=== PATIENT | female | born 1980 | race Caucasian/White ===

== ENCOUNTER → 2016-12-28 | Outpatient (REF) | payer BC ==
[~2016-12-28] MED LIST: ACET50TA OR; ANUS2.5C2 TOP; DOCU10ELUD OR; FISHOIL XX; IBUP80TA OR; MOM30SS OR; PRENTAB45 PO
== END ==
LOC: M SFHCCAPE 11:18
PROVIDERS: ATTEND Physician Assistant
DX: N39.0 Urinary tract infection, site not specified (principal)

== ENCOUNTER → 2018-03-07 | Outpatient (REF) | payer BC ==
[2018-03-07 18:18] LABS: APPEARANCE, URINE MANUAL CLOUDY (CLEAR); COLOR, URINE MANUAL ORANGE (YELLOW)
[2018-03-07 18:19] LABS: BILIRUBIN, URINE MANUAL OBSCURED (NEGATIVE); BLOOD URINE MANUAL POSITIVE (NEGATIVE); GLUCOSE, URINE (UA) MANUAL NEGATIVE (NEGATIVE); KETONE, URINE MANUAL OBSCURED mg/dL (NEGATIVE); LEUKOCYTE ESTERASE, URINE MAN OBSCURED (NEGATIVE); NITRITE, URINE MANUAL OBSCURED (NEGATIVE); PROTEIN, URINE MANUAL OBSCURED mg/dL (NEGATIVE); UROBILINOGEN, URINE MANUAL OBSCURED mg/dl (NORMAL)
[2018-03-07 18:20] LABS: MICROSCOPIC INDICATED? MAN YES (NO)
[2018-03-07 19:20] LABS: BACTERIA, URINE LARGE AMOUNT; HYALINE CAST, URINE NONE SEEN /lpf (0-1); MICROSCOPIC EXAM PERFORMED; MUCUS, URINE MOD AMOUNT (NEGATIVE); RBC, URINE 30-40 /hpf (0-3); SQUAMOUS EPITHELIAL CELL URINE MOD AMOUNT /hpf (SMALL AMT); WBC, URINE 30-40 /hpf (0-3)
== END ==
LOC: M SFHCCAPE 10:47
DX: R30.0 Dysuria (principal)
CPT/HCPCS: 81015

== ENCOUNTER 2019-03-21 09:35 | Inpatient (IN) | payer BC ==
[~2019-03-21] VITALS: Ht 162.6 cm; Wt 57.5 kg
[2019-03-21] MEDS: THIAMINE 100 MG TAB PO SCH ×2 (09:00→22:09)
[~2019-03-21 09:35] MED LIST changes: -ACET50TA OR; -DOCU10ELUD OR; +DOCU5LIQ OR; +MAPA500T17 OR
[2019-03-21] MEDS ORDERED: NITR100C2 (09:47)
[2019-03-21] MEDS ORDERED: MORPHINE 4 MG/ML 1ML VIAL/SYRINGE (J2270) IV ONE ×2 (10:45→12:15)
[2019-03-21] MEDS ORDERED: ONDANSETRON 4MG/2ML VIAL (J2405) IV ONE (10:45)
[2019-03-21 10:55] LABS: INR 1.02; PROTHROMBIN TIME 13.1 SECONDS (11.8-14.0)
[2019-03-21 10:56] LABS: PARTIAL THROMBOPLASTIN TIME 32.3 SECONDS (25.0-38.4)
[2019-03-21 11:04] LABS: BASO # 0.1 10^3/uL (0.0-0.2); BASO % 1.2 % (0.0-1.0); EOS % 0.2 % (0.0-3.0); HEMATOCRIT 44.8 % (36.0-47.0); HEMOGLOBIN 15.7 g/dl (12.0-15.5); LYMPH # 0.9 10^3/uL (1.5-4.5); LYMPH % 14.3 % (24.0-44.0); MEAN CORPUSCULAR HEMOGLOBIN 35.5 pg (27.0-33.0); MEAN CORPUSCULAR VOLUME 101.4 fl (80.0-96.0); MONO # 0.7 10^3/uL (0.0-0.8); MONO % 10.4 % (0.0-5.0); NEUTROPHILS # 4.8 10^3/uL (1.8-7.7); NEUTROPHILS % 73.4 % (36.0-66.0); PLATELET COUNT, AUTOMATED 115 10^3/uL (150-450); RED BLOOD COUNT 4.42 10^6/uL (4.00-5.40); WHITE BLOOD COUNT 6.5 10^3/uL (4.0-10.0)
--- NOTE | 2019-03-21 11:28 | REP ---
Clinical: Abdominal pain with history of pancreatitis. Technique: Real time ford scale ultrasound examination using curved array transducer. Findings: Liver is increased echogenicity with poor through transmission suggesting fatty infiltration. No focal hepatic lesion identified. Visualized portions of the pancreas are unremarkable but limited due to interposed bowel gas. The gallbladder is normal and without gallstones, wall thickening, or pericholecystic fluid. No biliary ductal dilatation is appreciated and the common bile duct measures 5.3 mm diameter. The right kidney is normal in reniform shape without hydronephrosis and measures 10.0 x 4.4 x 4.5 cm. No ascites in the visualized right upper quadrant. Impression: Hepatic steatosis. Electronically Signed by Josh Neff MD 03/21/2019 11:20 A
[2019-03-21 11:34] LABS: ALBUMIN 3.7 GM/DL (3.2-5.2); ALT/SGPT 120 U/L (12-78); AMYLASE 459 U/L (25-115); BILIRUBIN,DIRECT 0.8 MG/DL (0.0-0.2); BILIRUBIN,TOTAL 1.6 MG/DL (0.2-1.0); BLOOD UREA NITROGEN 5 MG/DL (7-18); CALCIUM LEVEL 8.1 MG/DL (8.5-10.1); CARBON DIOXIDE LEVEL 21 MEQ/L (21-32); CHLORIDE LEVEL 99 MEQ/L (98-107); ETHYL ALCOHOL (ETHANOL) 0.207 % (0.000-0.010); GLOMERULAR FILTRATION RATE > 60.0 (>58); GLUCOSE, FASTING 67 MG/DL (70-100); LIPASE 12146 U/L (73-393); POTASSIUM SERUM 3.3 MEQ/L (3.5-5.1); SODIUM LEVEL 137 MEQ/L (136-145); TOTAL PROTEIN 7.3 GM/DL (6.4-8.2)
[2019-03-21] MEDS ORDERED: NS 1,910 ML in APPROPRIATE DILUENT 1 EA IV ONE (12:00)
[2019-03-21] MEDS ORDERED: ACETAMINOPHEN TAB 650MG DOSE (2X325MG) PO PRN (12:45)
[2019-03-21] MEDS ORDERED: MAALOX 30 ML SUSP *UDC PO PRN (12:45)
[2019-03-21] MEDS ORDERED: MOM 30ML SUSPENSION UDC PO PRN (12:45)
[2019-03-21] MEDS ORDERED: ONDANSETRON 4MG/2ML VIAL (J2405) IV PRN (12:45)
[2019-03-21] MEDS ORDERED: ISOVUE-370 76% 100ML VIAL (Q9967) As Ordered ONE (13:16)
--- NOTE | 2019-03-21 13:18 | HPEPDOC ---
General Date of Admission Mar 21, 2019 at 12:35 Date of Service: Mar 21, 2019 Primary Care Physician: EDILMA DIAL PA-C Attending Physician: SIVAKUMAR ZIMMERMAN MD Chief Complaint The patient is a 39-year-old female admitted with a reason for visit of Pancreatitis,Alcoholic,Acute. Source: Patient, Family Exam Limitations: No limitations Timing/Duration: Day(s) Severity: Severe Associated Symptoms: Nausea, Other History of Present Illness 39 years old white female with past medical history of no significant disease except alcohol abuse was seen at [facility] last night with abdominal pain and was discharged home after treatment, came back again with complaining of increasing abdominal pain with nausea. Patient was found to have very high lipase level and being admitted with the diagnoses of alcohol-induced acute pancreatitis. Note, patient had a history of seizures after abruptly stopping her alcohol in the past Home Medications No Active Prescriptions or Reported Meds Allergies Coded Allergies: Sulfa (Sulfonamide Antibiotics) (Verified Allergy, Intermediate, cant remember, 03/21/19) Past Medical History Medical History None Surgical History None Family History Significant Family History: No pertinent family hx Social History * Smoker: Denies Alcohol: heavy Drugs: denies A-FIB/CHADSVASC A-FIB History Current/History of A-Fib/PAF?: No Review of Systems Constitutional: Denies: Chills, Fever, Malaise, Night Sweats, Weakness, Fatigue, Weight Loss, Lethargy, Other Eyes: Denies: Pain, Vision change, Conjunctivae inflammation, Eyelid inflammation, Redness, Other ENT: Denies: Head Aches, Ear Pain, Dysphagia, Sinus Congestion, Post Nasal Drip, Sore Throat, Epistaxis, Other Symptoms Skin: Denies: Rash, Lesions, Jaundice, Bruising, Itching, Dry, Breakdown, Nail Changes, Other Gastrointestinal: Reports: Nausea, Abdominal Pain Genitourinary: Denies: Dysuria, Frequency, Incontinence, Hematuria, Retention, Other Symptoms Hematologic: Denies: Bruising, Bleeding Excessively, Petecchia, Purpura, Enlarged Lymph Nodes, Other Hematologic Endocrine: Denies: Polydipsia, Polyphagia, Polyuria, Heat Intolerance, Cold Intolerance, Other Endocrine Sx Musculoskeletal: Denies: Neck Pain, Back Pain, Shoulder Pain, Arm Pain, Hand Pain, Leg Pain, Foot Pain, Joint Pain, Muscle Pain, Spasms, Other Symptoms Neurological: Denies: Weakness, Numbness, Incoordination, Change in speech, Confusion, Seizures, Other Symptoms Psych: Denies: Mood Normal, Anxiety, Depression, Memory Issues, Thoughts of S elf Harm, Anger, Thoughts of Harming Other, Other Psych Physical Examination General Exam: Positive: Alert, Cooperative Eye Exam: Positive: PERRLA ENT Exam: Positive: Atraumatic Neck Exam: Positive: Supple Chest Exam: Positive: Clear to auscultation Heart Exam: Positive: Rate Normal, Normal S1, Normal S2 Abdomen Exam: Positive: Normal bowel sounds, Soft, Tenderness (at the epigastric area) Extremity Exam: Positive: Normal pulses Skin Exam: Positive: Nl turgor and temperature Neuro Exam: Positive: Normal Gait, Normal Speech, Cranial Nerves 3-12 NL Psych Exam: Positive: Mental status NL Vital Signs Vital Signs Date Time Temp Pulse Resp B/P (MAP) Pulse Ox O2 Delivery O2 Flow Rate FiO2 03/21/19 12:18 18 03/21/19 10:15 03/21/19 09:35 97.7 68 100 Room Air Laboratory Data Labs 24H Laboratory Tests 2 03/21/19 10:07: Prothrombin Time 13.1, Prothromb Time International Ratio 1.02, Activated Partial Thromboplast Time 32.3 03/21/19 10:45: Immature Granulocyte % (Auto) 0.5, White Blood Count 6.5, Red Blood Count 4.42, Hemoglobin 15.7H, Hematocrit 44.8, Mean Corpuscular Volume 101.4H, Mean Corpu scular Hemoglobin 35.5H, Mean Corpuscular Hemoglobin Concent 35.0, Red Cell Distribution Width 12.8, Platelet Count 115L, Neutrophils (%) (Auto) 73.4H, Lymphocytes (%) (Auto) 14.3L, Monocytes (%) (Auto) 10.4H, Eosinophils (%) (Auto) 0.2, Basophils (%) (Auto) 1.2H, Neutrophils # (Auto) 4.8, Lymphocytes # (Auto) 0.9L, Monocytes # (Auto) 0.7, Eosinophils # (Auto) 0.0, Basophils # (Auto) 0.1, Nucleated Red Blood Cells % (auto) 0.0, Anion Gap 17H, Glomerular Filtration Rate > 60.0, Calcium Level 8.1L, Aspartate Amino Transf (AST/SGOT) 329H, Alanine Aminotransferase (ALT/SGPT) 120H, Alkaline Phosphatase 95, Total Bilirubin 1.6H, Direct Bilirubin 0.8H, Total Protein 7.3, Albumin 3.7, Albumin/Globulin Ratio 1.03, Amylase Level 459H, Lipase 05177I, Ethyl Alcohol Level 0.207H 03/21/19 10:46: Lactic Acid Level 3.2*H CBC/BMP Laboratory Tests 03/21/19 10:45 Red Blood Count 4.42, Mean Corpuscular Volume 101.4 H, Mean Corpuscular Hemoglobin 35.5 H, Mean Corpuscular Hemoglobin Concent 35.0, Red Cell Distribution Width 12.8, Neutrophils (%) (Auto) 73.4 H, Lymphocytes (%) (Auto) 14.3 L, Monocytes (%) (Auto) 10.4 H, Eosinophils (%) (Auto) 0.2, Basophils (%) ( Auto) 1.2 H, Neutrophils # (Auto) 4.8, Lymphocytes # (Auto) 0.9 L, Monocytes # (Auto) 0.7, Eosinophils # (Auto) 0.0, Basophils # (Auto) 0.1 Problems (1) Pancreatitis, alcoholic, acute Status: Acute Problem Text: Admit to medical floor with telemetry IV fluids normal saline with KCl 40 mEq 800 mL per hour Protonix 40 mg IV every 12 hours CIWA protocol with benzodiazepines Seizure precautions CT of the abdomen and pelvis Zofran when necessary for nausea, vomiting Morphine sulfate when necessary for pain 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
--- NOTE | 2019-03-21 13:45 | REP ---
Clinical: Acute pancreatitis Technique: Axial contrast enhanced images from the lung bases to the pubic symphysis with coronal and sagittal re-formations using 100 ml Isovue 370 intravenous contrast material. Delayed images of the abdomen obtained. Comparison: None. Findings: Moderate amount of stranding and free fluid is appreciated adjacent to the head of the pancreas as well as the retroperitoneal space, mesentery and extending along the right paracolic gutter into the pelvis. Findings are consistent with the given history of acute pancreatitis. The pancreas itself demonstrates homogeneous parenchymal enhancement without evidence for necrosis or ischemia. Pancreatic duct appears relatively normal. No obvious discrete drainable abscess or pseudocyst. Liver demonstrates diffuse fatty infiltration with 2.5 cm area of enhancement along the posterior segment right lobe which may reflect normal parenchyma or hemangioma. Gallbladder is mildly distended. Spleen, bilateral adrenal glands and kidneys are normal. Enteric system is without obstruction or acute inflammatory process. Colonic and sigmoid diverticulosis noted without acute diverticulitis. Normal terminal ileum and appendix are identified in the right lower quadrant. Pelvis demonstrates normal bladder with small amount of air in the nondependent portion possibly related to prior Funes catheterization. Normal appearance to the uterus/adnexa. No significant adenopathy. Abdominal aorta and vasculature normal. Surrounding musculoskeletal structures are intact. Lung bases are clear. Impression: 1. Findings as described above consistent with the given history of acute pancreatitis. No drainable collection/abscess or pseudocyst identified. 2. Diffuse fatty infiltration to the liver with possible focal fatty sparing or hemangioma in the posterior segment right lobe. 3. Colonic diverticulosis without acute diverticulitis. Electronically Signed by Josh Neff MD 03/21/2019 01:37 P
[2019-03-21 14:31] LABS: MAGNESIUM LEVEL 1.7 MG/DL (1.8-2.4)
[2019-03-21 14:32] VITALS: BP 129/67
[2019-03-21 14:57] VITALS: BP 129/67
[2019-03-21] MEDS: KCL 40MEQ in NS 1000ML 1,000 ML IV SCH (15:19)
[2019-03-21] MEDS: PANTOPRAZOLE 40MG INJ (PROTONIX) (C9113) IV SCH (15:19)
[2019-03-21] MEDS: LORazepam 2 MG TAB PO PRN ×2 (15:19→19:58)
[2019-03-21] MEDS: MULTIVITAMINS/MINERALS THERAP 1 TAB PO SCH (15:19)
[2019-03-21] MEDS: FOLIC ACID 1 MG TAB PO SCH (15:19)
[2019-03-21] MEDS ORDERED: NS 1,000 ML IV ONE (15:45)
[2019-03-21] MEDS: MORPHINE 4 MG/ML 1ML VIAL/SYRINGE (J2270) IV PRN (16:28)
[2019-03-21 19:00] VITALS: BP 135/68
[2019-03-21 19:58] VITALS: BP 124/72
[2019-03-21 22:00] VITALS: BP 124/72
[2019-03-21] MEDS: DOCUSATE SODIUM 100 MG CAP PO SCH (22:10)
[2019-03-22] VITALS (7 sets, daily range): BP systolic 124–139; BP diastolic 60–78
[2019-03-22] MEDS: PANTOPRAZOLE 40MG INJ (PROTONIX) (C9113) IV SCH ×2 (02:20→12:24)
[2019-03-22] MEDS: KCL 40MEQ in NS 1000ML 1,000 ML IV SCH ×3 (02:20→13:22)
[2019-03-22] MEDS: MORPHINE 4 MG/ML 1ML VIAL/SYRINGE (J2270) IV PRN ×2 (06:28→13:35)
[2019-03-22 06:38] LABS: MEAN CORPUSCULAR HEMOGLOBIN 35.2 pg (27.0-33.0); MEAN CORPUSCULAR HGB CONC 33.8 g/dl (32.0-36.5); MEAN CORPUSCULAR VOLUME 104.4 fl (80.0-96.0); RED BLOOD COUNT 3.83 10^6/uL (4.00-5.40); WHITE BLOOD COUNT 5.4 10^3/uL (4.0-10.0)
[2019-03-22 06:50] LABS: PLATELET COUNT, AUTOMATED 85 10^3/uL (150-450)
[2019-03-22 06:51] LABS: HEMOGLOBIN 13.5 g/dl (12.0-15.5)
[2019-03-22 07:01] LABS: ALBUMIN 3.1 GM/DL (3.2-5.2); ALT/SGPT 83 U/L (12-78); BLOOD UREA NITROGEN 3 MG/DL (7-18); CALCIUM LEVEL 6.9 MG/DL (8.5-10.1); CARBON DIOXIDE LEVEL 18 MEQ/L (21-32); CHLORIDE LEVEL 102 MEQ/L (98-107); CREATININE FOR GFR 0.53 MG/DL (0.55-1.30); GLOMERULAR FILTRATION RATE > 60.0 (>58); GLUCOSE, FASTING 65 MG/DL (70-100); MAGNESIUM LEVEL 1.6 MG/DL (1.8-2.4); POTASSIUM SERUM 4.4 MEQ/L (3.5-5.1); SODIUM LEVEL 134 MEQ/L (136-145); TOTAL PROTEIN 6.4 GM/DL (6.4-8.2)
[2019-03-22 08:24] LABS: LIPASE 12143 U/L (73-393)
[2019-03-22] MEDS: THIAMINE 100 MG TAB PO SCH ×2 (09:34→20:53)
[2019-03-22] MEDS: FOLIC ACID 1 MG TAB PO SCH (09:34)
[2019-03-22] MEDS: DOCUSATE SODIUM 100 MG CAP PO SCH ×2 (09:34→20:53)
[2019-03-22] MEDS: MULTIVITAMINS/MINERALS THERAP 1 TAB PO SCH (09:34)
--- NOTE | 2019-03-22 11:08 | IPNPDOC ---
Subjective Date Seen The patient was seen on 03/22/19. Subjective Chief Complaint/HPI Patient offers no new complaints. Still feeling swollen Overall but no chest pain, no nausea, vomiting, no diarrhea General: Denies: ROS Unobtainable, Chills, Night Sweats, Fatigue, Malaise, Normal Appetite, Other Symptoms Constitutional: Denies: Chills, Fever, Night Sweats Eyes: Denies: Pain, Vision change, Conjunctivae inflammation, Eyelid inflammation, Redness, Other ENT: Denies: Head Aches, Ear Pain, Dysphagia, Sinus Congestion, Post Nasal Drip, Sore Throat, Epistaxis, Other Symptoms Skin: Denies: Rash, Lesions, Jaundice, Bruising, Itching, Dry, Breakdown, Nail Changes, Other Pulmonary: Denies: Dyspnea, Cough, Pleuritic Chest Pain, Other Symptoms Cardiovascular: Denies: Chest Pain, Palpitations, Orthopnea, Paroxysmal Noc. Dyspnea, Edema, Lt Headedness, Other Symptoms Gastrointestinal: Denies: Nausea, Vomiting, Abdominal Pain, Diarrhea, Constipation, Melena, Hematochezia, Other Symptoms Musculoskeletal: Denies: Neck Pain, Back Pain, Shoulder Pain, Arm Pain, Hand Pain, Leg Pain, Foot Pain, Joint Pain, Muscle Pain, Spasms, Other Symptoms Neurological: Denies: Weakness, Numbness, Incoordination, Change in speech, Confusion, Seizures, Other Symptoms Psych: Denies: Mood Normal, Anxiety, Depression, Memory Issues, Thoughts of Self Harm, Anger, Thoughts of Harming Other, Other Psych Objective Physical Examination General Exam: Positive: Alert, Cooperative Eye Exam: Positive: PERRLA ENT Exam: Positive: Atraumatic Neck Exam: Positive: Supple Chest Exam: Positive: Clear to auscultation Heart Exam: Positive: Rate Normal, Normal S1, Normal S2 Abdomen Exam: Positive: Normal bowel sounds, Soft, Tenderness (at the epigastric area) Extremity Exam: Positive: Normal pulses Skin Exam: Positive: Nl turgor and temperature Neuro Exam: Positive: Normal Gait, Normal Speech, Cranial Nerves 3-12 NL Psych Exam: Positive: Mental status NL Assessment /Plan Problems (1) Pancreatitis, alcoholic, acute Status: Acute Problem Text: IV fluids normal saline with KCl 40 mEq 800 mL per hour Protonix 40 mg IV every 12 hours CIWA protocol with benzodiazepines Seizure precautions CT of the abdomen and pelvis consistent with acute pancreatitis Zofran when necessary for nausea, vomiting Morphine sulfate when necessary for pain Folic acid and thiamine supplementations Repeat labs in a.m. Alcohol abstinence counseling was done in detail Plan/VTE VTE Prophylaxis Ordered?: Yes VS, I&O, 24H, Gopi Vital Signs/I&O Vital Signs Date Time Temp Pulse Resp B/P (MAP) Pulse Ox O2 Delivery O2 Flow Rate FiO2 03/22/19 08:00 72 128/63 03/22/19 06:38 20 03/22/19 06:00 98.4 100 03/21/19 14:26 Room Air I&O- Last 24 Hours up to 6 AM 03/22/19 06:00 Intake Total 3530 ml Output Total 0 ml Balance 3530 ml Laboratory Data 24H LABS Laboratory Tests 2 03/21/19 14:30: Urine Color KAELA, Urine Appearance HAZY, Urine pH 6.0, Urine Specific [place] 1.023, Urine Protein 2+H, Urine Glucose (UA) NEGATIVE, Urine Ketones 2+H, Urine Blood NEGATIVE, Urine Nitrite NEGATIVE, Urine Bilirubin NEGATIVE, Urine Urobilinogen 0.2, Urine Leukocyte Esterase TRACEH, Urine WBC (Auto) 6H, Urine RBC (Auto) 3, Urine Hyaline Casts (Auto) 0, Urine Bacteria (Auto) NEGATIVE, Urine Squamous Epithelial Cells 4, Urine Mucus (Auto) SMALL, Urine Sperm (Auto) 03/21/19 14:44: Lactic Acid Level 2.5*H 03/21/19 19:42: Lactic Acid Followup at 4 Hours 1.8 03/22/19 05:39: Nucleated Red Blood Cells % (auto) 0.0, Immature Platelet Fraction 5.9, Anion Gap 14, Glomerular Filtration Rate > 60.0, Blood Urea Nitrogen 3L, Creatinine 0.53L, Sodium Level 134L, Potassium Level 4.4#, Chloride Level 102, Carbon Dioxide Level 18L, Calcium Level 6.9L, Aspartate Amino Transf (AST/SGOT) 211H, Alanine Aminotransferase (ALT/SGPT) 83H, Alkaline Phosphatase 76, Total Bilirubin 2.0H, Total Protein 6.4, Albumin 3.1L, Magnesium Level 1.6L, Albumin/Globulin Ratio 0.94L, Lipase 43702Q CBC/BMP Laboratory Tests 03/22/19 05:39 Red Blood Count 3.83 L, Mean Corpuscular Volume 104.4 H, Mean Corpuscular Hemoglobin 35.2 H, Mean Corpuscular Hemoglobin Concent 33.8, Red Cell Distribution Width 12.7, Calcium Level 6.9 L, Aspartate Amino Transf (AST/SGOT) 211 H, Alanine Aminotransferase (ALT/SGPT) 83 H, Alkaline Phosphatase 76, Total Bilirubin 2.0 H, Total Protein 6.4, Albumin 3.1 L Microbiology Microbiology 03/21/19 Urine Culture - Final, Complete SIVAKUMAR ZIMMERMAN MD Mar 22, 2019 11:08
[2019-03-22] MEDS: LORazepam 2 MG TAB PO PRN (14:26)
[2019-03-22] MEDS ORDERED: MAG SULF 1GM/100ML (MAG RUN) 1 GM in APPROPRIATE DILUENT 1 EA IV ONE (16:30)
[2019-03-22] MEDS ORDERED: PERCOCET 5MG/325MG TAB PO PRN (20:45)
[2019-03-23] VITALS (16 sets, daily range): BP systolic 116–153; BP diastolic 56–80
[2019-03-23] MEDS: PANTOPRAZOLE 40MG INJ (PROTONIX) (C9113) IV SCH (00:37)
[2019-03-23] MEDS: KCL 40MEQ in NS 1000ML 1,000 ML IV SCH (00:38)
[2019-03-23 05:57] LABS: HEMATOCRIT 38.7 % (36.0-47.0); HEMOGLOBIN 13.2 g/dl (12.0-15.5); MEAN CORPUSCULAR HEMOGLOBIN 35.2 pg (27.0-33.0); MEAN CORPUSCULAR HGB CONC 34.1 g/dl (32.0-36.5); MEAN CORPUSCULAR VOLUME 103.2 fl (80.0-96.0); RED BLOOD COUNT 3.75 10^6/uL (4.00-5.40); WHITE BLOOD COUNT 6.3 10^3/uL (4.0-10.0)
[2019-03-23 06:00] LABS: PLATELET COUNT, AUTOMATED 78 10^3/uL (150-450)
[2019-03-23 06:23] LABS: ALBUMIN 2.9 GM/DL (3.2-5.2); ALT/SGPT 64 U/L (12-78); BILIRUBIN,TOTAL 1.7 MG/DL (0.2-1.0); BLOOD UREA NITROGEN 2 MG/DL (7-18); CALCIUM LEVEL 7.2 MG/DL (8.5-10.1); CARBON DIOXIDE LEVEL 23 MEQ/L (21-32); CHLORIDE LEVEL 102 MEQ/L (98-107); CREATININE FOR GFR 0.39 MG/DL (0.55-1.30); GLOMERULAR FILTRATION RATE > 60.0 (>58); GLUCOSE, FASTING 82 MG/DL (70-100); LIPASE 4950 U/L (73-393); POTASSIUM SERUM 3.9 MEQ/L (3.5-5.1); SODIUM LEVEL 134 MEQ/L (136-145); TOTAL PROTEIN 6.4 GM/DL (6.4-8.2)
[2019-03-23] MEDS: LORazepam 2 MG TAB PO PRN ×5 (06:50→20:04)
[2019-03-23] MEDS: FOLIC ACID 1 MG TAB PO SCH (07:40)
[2019-03-23] MEDS: DOCUSATE SODIUM 100 MG CAP PO SCH ×2 (07:40→20:47)
[2019-03-23] MEDS: MULTIVITAMINS/MINERALS THERAP 1 TAB PO SCH (07:40)
[2019-03-23] MEDS: THIAMINE 100 MG TAB PO SCH ×2 (07:40→20:47)
--- NOTE | 2019-03-23 11:33 | IPNPDOC ---
Subjective Date Seen The patient was seen on 03/23/19. Subjective Chief Complaint/HPI Patient abdominal pain has significantly decreased, but still has some pain, no other complaints including nausea, vomiting General: Denies: ROS Unobtainable, Chills, Night Sweats, Fatigue, Malaise, Normal Appetite, Other Symptoms Constitutional: Denies: Chills, Fever, Malaise, Night Sweats, Weakness, Fatigue, Weight Loss, Lethargy, Other Eyes: Denies: Pain, Vision change, Conjunctivae inflammation, Eyelid inflammation, Redness, Other ENT: Denies: Head Aches, Ear Pain, Dysphagia, Sinus Congestion, Post Nasal Drip, Sore Throat, Epistaxis, Other Symptoms Skin: Denies: Rash, Lesions, Jaundice, Bruising, Itching, Dry, Breakdown, Nail Changes, Other Pulmonary: Denies: Dyspnea, Cough, Pleuritic Chest Pain, Other Symptoms Cardiovascular: Denies: Chest Pain, Palpitations, Orthopnea, Paroxysmal Noc. Dyspnea, Edema, Lt Headedness, Other Symptoms Gastrointestinal: Reports: Abdominal Pain Musculoskeletal: Denies: Neck Pain, Back Pain, Shoulder Pain, Arm Pain, Hand Pain, Leg Pain, Foot Pain, Joint Pain, Muscle Pain, Spasms, Other Symptoms Neurological: Denies: Weakness, Numbness, Incoordination, Change in speech, Confusion, Seizures, Other Symptoms Psych: Denies: Mood Normal, Anxiety, Depression, Memory Issues, Thoughts of Self Harm, Anger, Thoughts of Harming Other, Other Psych Objective Physical Examination General Exam: Positive: Alert, Cooperative Eye Exam: Positive: PERRLA ENT Exam: Positive: Atraumatic Neck Exam: Positive: Supple Chest Exam: Positive: Clear to auscultation Heart Exam: Positive: Rate Normal, Normal S1, Normal S2 Abdomen Exam: Positive: Normal bowel sounds, Soft, Tenderness (mild tenderness at the epigastric area) Extremity Exam: Positive: Normal pulses Skin Exam: Positive: Nl turgor and temperature Neuro Exam: Positive: Normal Gait, Normal Speech, Cranial Nerves 3-12 NL Psych Exam: Positive: Mental status NL Assessment /Plan Problems (1) Pancreatitis, alcoholic, acute Status: Acute Problem Text: Significantly improved with the conservative management Progress diet to regular diet DC IV fluid if tolerates oral feeding well And Protonix to by mouth CT of the abdomen and pelvis consistent with acute pancreatitis Zofran when necessary for nausea, vomiting Morphine sulfate when necessary for pain (2) Hypokalemia Status: Acute Problem Text: Potassium supplement given A.m. level work (3) Hypomagnesemia Status: Acute Problem Text: Magnesium supplement given A.m. level work (4) Alcohol withdrawal Problem Text: Folic acid and thiamine supplementations [facility] protocol with benzodiazepines for alcohol withdrawal Seizure precautions as has a history of seizures during withdrawal Alcohol abstinence counseling was done in detail Plan/VTE VTE Prophylaxis Ordered?: Yes VS, I&O, 24H, Fishbone Vital Signs/I&O Vital Signs Date Time Temp Pulse Resp B/P (MAP) Pulse Ox O2 Delivery O2 Flow Rate FiO2 03/23/19 10:32 92 136/66 03/23/19 06:00 96.3 17 96 03/21/19 14:26 Room Air I&O- Last 24 Hours up to 6 AM 03/23/19 05:59 Intake Total 2380 ml Balance 2380 ml Laboratory Data 24H LABS Laboratory Tests 2 03/23/19 05:38: Nucleated Red Blood Cells % (auto) 0.0, Anion Gap 9, Glomerular Filtration Rate > 60.0, Blood Urea Nitrogen 2L, Creatinine 0.39L, Sodium Level 134L, Potassium Level 3.9, Chloride Level 102, Carbon Dioxide Level 23, Calcium Level 7.2L, Aspartate Amino Transf (AST/SGOT) 127H, Alanine Aminotransferase (ALT/SGPT) 64, Alkaline Phosphatase 73, Total Bilirubin 1.7H, Total Protein 6.4, Albumin 2.9L, Albumin/Globulin Ratio 0.83L, Lipase 4950H CBC/BMP Laboratory Tests 03/23/19 05:38 Red Blood Count 3.75 L, Mean Corpuscular Volume 103.2 H, Mean Corpuscular Hemoglobin 35.2 H, Mean Corpuscular Hemoglobin Concent 34.1, Red Cell Distribution Width 12.4, Calcium Level 7.2 L, Aspartate Amino Transf (AST/SGOT) 127 H, Alanine Aminotransferase (ALT/SGPT) 64, Alkaline Phosphatase 73, Total Bilirubin 1.7 H, Total Protein 6.4, Albumin 2.9 L Microbiology Microbiology 03/21/19 Urine Culture - Final, Complete SIVAKUMAR ZIMMERMAN MD Mar 23, 2019 11:33
[2019-03-23] MEDS: chlordiazePOXIDE 25 MG CAP PO SCH ×2 (18:40→22:58)
[2019-03-23] MEDS ORDERED: LORazepam 2 MG/ML VIAL (J2060) IV STA ×2 (20:18→21:15)
[2019-03-23] MEDS ORDERED: PANTOPRAZOLE 20 MG TAB PO SCH (21:00)
[2019-03-23] MEDS ORDERED: cloNIDine 0.1 MG TAB PO ONE (21:15)
[2019-03-23] MEDS ORDERED: QUEtiapine FUMARATE 25 MG TAB PO ONE (22:45)
[2019-03-24] VITALS (32 sets, daily range): BP systolic 19–174; BP diastolic 58–104
[2019-03-24] MEDS ORDERED: cloNIDine 0.1 MG TAB PO ONE (01:15)
[2019-03-24] MEDS: chlordiazePOXIDE 25 MG CAP PO SCH ×2 (05:36→17:15)
[2019-03-24] MEDS: LORazepam 2 MG TAB PO PRN ×2 (05:36→07:51)
[2019-03-24 05:51] LABS: HEMATOCRIT 40.4 % (36.0-47.0); HEMOGLOBIN 13.9 g/dl (12.0-15.5); MEAN CORPUSCULAR HEMOGLOBIN 35.3 pg (27.0-33.0); MEAN CORPUSCULAR HGB CONC 34.4 g/dl (32.0-36.5); MEAN CORPUSCULAR VOLUME 102.5 fl (80.0-96.0); PLATELET COUNT, AUTOMATED 100 10^3/uL (150-450); RED BLOOD COUNT 3.94 10^6/uL (4.00-5.40); WHITE BLOOD COUNT 6.1 10^3/uL (4.0-10.0)
[2019-03-24 06:22] LABS: ALBUMIN 3.4 GM/DL (3.2-5.2); ALT/SGPT 64 U/L (12-78); BILIRUBIN,TOTAL 1.8 MG/DL (0.2-1.0); BLOOD UREA NITROGEN 4 MG/DL (7-18); CALCIUM LEVEL 8.9 MG/DL (8.5-10.1); CARBON DIOXIDE LEVEL 28 MEQ/L (21-32); CHLORIDE LEVEL 105 MEQ/L (98-107); CREATININE FOR GFR 0.49 MG/DL (0.55-1.30); GLOMERULAR FILTRATION RATE > 60.0 (>58); GLUCOSE, FASTING 89 MG/DL (70-100); LIPASE 3486 U/L (73-393); POTASSIUM SERUM 3.3 MEQ/L (3.5-5.1); SODIUM LEVEL 139 MEQ/L (136-145); TOTAL PROTEIN 7.2 GM/DL (6.4-8.2)
[2019-03-24] MEDS: FOLIC ACID 1 MG TAB PO SCH (07:51)
[2019-03-24] MEDS: MULTIVITAMINS/MINERALS THERAP 1 TAB PO SCH (07:51)
[2019-03-24] MEDS: DOCUSATE SODIUM 100 MG CAP PO SCH ×2 (07:51→21:00)
[2019-03-24] MEDS ORDERED: LORazepam 2 MG/ML VIAL (J2060) IV PRN (09:00)
[2019-03-24] MEDS ORDERED: MAG SULF 1GM/100ML (MAG RUN) 1 GM in APPROPRIATE DILUENT 1 EA IV ONE (09:45)
[2019-03-24] MEDS: D5W/0.45% SODIUM CHLORIDE 1,000 ML IV SCH ×2 (09:46→20:04)
[2019-03-24] MEDS: LORazepam 2 MG/ML VIAL (J2060) IV PRN ×5 (09:56→23:49)
[2019-03-24] MEDS ORDERED: chlordiazePOXIDE 25 MG CAP PO ONE (10:00)
[2019-03-24] MEDS: KCL 10MEQ/100ML SWI (KRUN) 10 MEQ in APPROPRIATE DILUENT 1 EA IV SCH ×3 (10:25→13:28)
[2019-03-24] MEDS: ENOXAPARIN 40 MG/0.4 ML SYRINGE (J1650) SC SCH (11:18)
--- NOTE | 2019-03-24 11:19 | CR ---
DATE OF CONSULTATION: 03/24/2019 HISTORY OF PRESENT ILLNESS: History was obtained from the chart and other collateral information as the patient is altered and unable to provide a complete history. The patient is a 39-year-old female with a past medical history of alcohol abuse, hyperlipidemia, depression who presented with the complaint of abdominal pain initially. The patient was found on admission to have significantly elevated lipase and she had evidence of acute pancreatitis on her CT abdomen and pelvis. The patient was also found to have acute alcohol intoxication with a positive urine toxicology and alcohol level on admission. She was admitted and started on IV fluids and morphine p.r.n. for pain control. She was also started on benzodiazepines with Librium and Ativan for alcohol withdrawal protocol. Overnight, however, the patient became increasingly agitated as well as delirious and tremulous. She was requiring two one-to-one sitters for control as well as p.r.n. Ativan but continued to be significantly agitated. She is still delirious this morning complaining of visual and some auditory hallucinations. The patient is not oriented to place or time, is oriented to person currently. She denies any significant abdominal pain currently and has not had any nausea or vomiting. No diarrhea noted. She denies any chest pains. No coughing. No shortness of breath. Has not had any fevers or chills since admission. PAST MEDICAL HISTORY: Alcohol abuse. Hyperlipidemia. Depression. Recent ED visit at [facility] with a reported history of a fall and a CT showing a right orbital floor fracture without impingement. PAST SURGICAL HISTORY: None reported. ALLERGIES: 1. SULFA. HOME MEDICATIONS: None. SOCIAL HISTORY: The patient is a current drinker of approximately 12 shots of vodka daily. She is also a current active smoker of 5 cigarettes or less daily. FAMILY HISTORY: There is a history of alcohol abuse in her brother reportedly. PHYSICAL EXAMINATION: Temperature 97.5, pulse 93, respirations 20, blood pressure 123/68, O2 sat 98% on room air. GENERAL: The patient is lying in bed, appears agitated and restless, is mumbling and is oriented to person only and not to place or time. HEENT: Normocephalic, atraumatic. Pupils are equal and reactive to light bilaterally. Mucous membranes are slightly dry. She is not diaphoretic but does appear warm. Neck: Supple. Trachea is midline. There is no palpable adenopathy. Cardiovascular: Regular rate and rhythm. Normal S1-S2. Unable to appreciate any murmurs. Pulmonary: Patient is clear to auscultation bilaterally anteriorly. No rales, wheezing or rhonchi noted. Abdomen is soft, mildly distended but nontender to palpation. Lower extremities: There is no lower extremity edema noted bilaterally but she does have bruising noted on her legs. LABORATORY DATA: WBC 6.1, hemoglobin 13.9, platelets 100. Chemistries: Sodium 139, potassium 3.3, chloride 105, bicarb 28, BUN 4, creatinine 0.49, glucose is 89, total bilirubin 1.8, magnesium 1.6, AST 97, ALT 64, lipase trending down to 3486. Microbiology: Urine culture no growth to date. IMAGING: Gallbladder ultrasound showed evidence of hepatic steatosis, but no gallstones or gallbladder thickening. No evidence of hydronephrosis in the right kidney. Abdomen and pelvis CT shows a moderate amount of stranding and free fluid adjacent to the head of the pancreas as well as the retroperitoneal space, mesentery and along the right paracolic gutter consistent with acute pancreatitis. No evidence of necrosis or ischemia. Liver with some fatty infiltration. Evidence of chronic diverticulosis without acute diverticulitis. ASSESSMENT/PLAN: The patient is a 39-year-old female with history of alcohol abuse, hyperlipidemia, depression who presents initially with acute abdominal pain. The patient was found to have elevated lipase and CT imaging consistent with acute pancreatitis. Patient likely with alcoholic pancreatitis given her history of active alcohol abuse. The patient was started on CIWA protocol and benzodiazepines for alcohol withdrawal; however, overnight she became increasingly agitated and delirious, complaining of visual and auditory hallucinations, and becoming less oriented. The patient appears to be in acute alcohol withdrawal and possible delirium tremens. She was admitted to the ICU for further management of her severe alcohol withdrawal. - The patient's CIWA score this morning was approximately 23 consistent with severe alcohol withdrawal and possible DTs. - The patient is on Librium 25 mg by mouth every 6 hours. Will increase her to 50 mg by mouth every 6 hours and hold for excessive sedation or for CIWA score less than 8, will likely need to be readdress the dosage. - Continue with p.r.n. Ativan. Will change from p.o. to IV with 2 mg IV p.r.n. for increased agitation or for a CIWA score above 8. - Continue monitoring her CIWA score. Would change her to checking the CIWA every 4 hours and may need more frequent rechecks as needed for agitation. - Continue with morphine p.r.n. for pain control for acute pancreatitis. - The patient received IV fluids on admission for her acute pancreatitis and her lipase and BUN has trended down. Would continue now with just IV maintenance fluids with D5 1/2 NS at 100 mL an hour. - Keep patient NPO for now - Continue to monitor her renal function and electrolytes. Would replete potassium and her magnesium and followup repeat electrolytes. - Continue with thiamine, folate and multivitamin. - Continue with seizure precautions and monitoring her respiratory status. If patient has evidence of respiratory depression or being unable to protect airway she may require intubation at that time. - The patient has mild thrombocytopenia likely in the setting of her chronic alcohol use. Would continue to monitor. Deep vein thrombosis (DVT) prophylaxis. Start Lovenox. Gastrointestinal (GI) prophylaxis with proton pump inhibitor (PPI). FULL CODE. Total critical care time spent, not including any procedures, approximately 1 hour and 35 minutes. MTDD
--- NOTE | 2019-03-24 11:46 | IPNPDOC ---
Subjective Date Seen The patient was seen on 03/24/19. Subjective Chief Complaint/HPI Patient with the visual, auditory and tactile hallucination with altered mental status. Patient is on one-to-one watch as she tried to pull out her IVs and monitor Patient will be transferred to ICU for close observation General: Reports: ROS Unobtainable Objective Physical Examination General Exam: Positive: Severe Distress Eye Exam: Positive: Other Eye Symptoms (able to examine) ENT Exam: Positive: Atraumatic Neck Exam: Positive: Supple Chest Exam: Positive: Clear to auscultation Heart Exam: Positive: Rate Normal, Normal S1, Normal S2 Abdomen Exam: Positive: Soft Assessment /Plan Problems (1) Pancreatitis, alcoholic, acute Status: Acute Problem Text: . Pancreatitis is improving, her last lipase is 3486 Will continue IV fluids And continue monitoring lipase Morphine for pain management (2) Hypokalemia Status: Acute Problem Text: Potassium supplementation given . Levels in a.m. (3) Hypomagnesemia Status: Acute Problem Text: Repeat levels in a.m. (4) Alcohol withdrawal Problem Text: Severe alcohol withdrawal, possibly delirium tremors Patient will be transferred to ICU for close observation Critical care consult requested with Dr.kennan Hernandez Librium and which the dose has been increased Ativan when necessary as per orders Her been called and discussed regarding patient's current management prognosis and transferred to ICU Plan/VTE VTE Prophylaxis Ordered?: Yes VS, I&O, 24H, Fishbone Vital Signs/I&O Vital Signs Date Time Temp Pulse Resp B/P (MAP) Pulse Ox O2 Delivery O2 Flow Rate FiO2 03/24/19 10:00 99.4 95 20 116/88 (97) 96 03/21/19 14:26 Room Air I&O- Last 24 Hours up to 6 AM 03/24/19 05:59 Intake Total 1820 ml Output Total 0 ml Balance 1820 ml Laboratory Data 24H LABS Laboratory Tests 2 03/24/19 05:31: Nucleated Red Blood Cells % (auto) 0.0, Anion Gap 6L, Glomerular Filtration Rate > 60.0, Blood Urea Nitrogen 4#L, Creatinine 0.49L, Sodium Level 139, Potassium Level 3.3L, Chloride Level 105, Carbon Dioxide Level 28, Calcium Level 8.9#, Aspartate Amino Transf (AST/SGOT) 97H, Alanine Aminotransferase (ALT/SGPT) 64, Alkaline Phosphatase 88, Total Bilirubin 1.8H, Total Protein 7.2, Albumin 3.4, Albumin/Globulin Ratio 0.89L, Lipase 3486H CBC/BMP Laboratory Tests 03/24/19 05:31 Red Blood Count 3.94 L, Mean Corpuscular Volume 102.5 H, Mean Corpuscular Hemoglobin 35.3 H, Mean Corpuscular Hemoglobin Concent 34.4, Red Cell Distribution Width 12.4, Calcium Level 8.9 #, Aspartate Amino Transf (AST/SGOT) 97 H, Alanine Aminotransferase (ALT/SGPT) 64, Alkaline Phosphatase 88, Total Bilirubin 1.8 H, Total Protein 7.2, Albumin 3.4 Microbiology Microbiology 03/21/19 Urine Culture - Final, Complete SIVAKUMAR ZIMMERMAN MD Mar 24, 2019 11:46
[2019-03-24] MEDS ORDERED: chlordiazePOXIDE 25 MG CAP PO SCH (12:00)
[2019-03-25] VITALS (16 sets, daily range): BP systolic 97–142; BP diastolic 55–84
[2019-03-25] MEDS ORDERED: MIDAZOLAM INJ 2 MG/2 ML VIAL (J2250) IV ONE (01:00)
[2019-03-25] MEDS: MORPHINE 4 MG/ML 1ML VIAL/SYRINGE (J2270) IV PRN (01:48)
[2019-03-25] MEDS: LORazepam 2 MG/ML VIAL (J2060) IV PRN (02:29)
[2019-03-25] MEDS ORDERED: MIDAZOLAM INJ 2 MG/2 ML VIAL (J2250) IV PRN (02:45)
[2019-03-25] MEDS: chlordiazePOXIDE 25 MG CAP PO SCH ×5 (06:00→23:07)
[2019-03-25] MEDS: DOCUSATE SODIUM 100 MG CAP PO SCH ×2 (09:00→20:40)
[2019-03-25] MEDS: MULTIVITAMINS/MINERALS THERAP 1 TAB PO SCH (09:00)
[2019-03-25] MEDS: FOLIC ACID 1 MG TAB PO SCH (09:00)
[2019-03-25] MEDS: PANTOPRAZOLE 40MG INJ (PROTONIX) (C9113) IV SCH (09:18)
[2019-03-25] MEDS: D5W/0.45% SODIUM CHLORIDE 1,000 ML IV SCH ×2 (09:18→20:39)
[2019-03-25] MEDS: ENOXAPARIN 40 MG/0.4 ML SYRINGE (J1650) SC SCH (09:19)
--- NOTE | 2019-03-25 10:50 | IPNPDOC ---
Subjective Date Seen The patient was seen on 03/25/19. Subjective Chief Complaint/HPI Patient is sleeping very well, has been agitated last night General: Reports: ROS Unobtainable Objective Physical Examination Chest Exam: Positive: Clear to auscultation Heart Exam: Positive: Rate Normal, Normal S1, Normal S2 Abdomen Exam: Positive: Soft Assessment /Plan Problems (1) Pancreatitis, alcoholic, acute Status: Acute Problem Text: Pancreatitis is improving, her last lipase is 2363 Will continue IV fluids as per orders Repeat lipase has been ordered which is still pending Morphine was ordered for pain management (2) Hypokalemia Status: Acute Problem Text: Potassium supplement was given yesterday Repeat labs are still pending (3) Hypomagnesemia Status: Acute Problem Text: Magnesium was supplemented yesterday Be labs are pending (4) DTs (delirium tremens) Status: Acute Problem Text: Patient received multiple doses of Ativan, Librium, and Versed Critical care consult by Dr. Palacios appreciated Patient is currently sleeping very well and hopefully the medication has started working . We will repeat laboratory work including CBC, CMP, magnesium and lipase level today Will continue close monitoring in ICU for one more day until patient is awake, alert, oriented 3 Plan/VTE VTE Prophylaxis Ordered?: Yes VS, I&O, 24H, Fishbone Vital Signs/I&O Vital Signs Date Time Temp Pulse Resp B/P (MAP) Pulse Ox O2 Delivery O2 Flow Rate FiO2 03/25/19 08:00 97/62 03/25/19 08:00 97.6 73 16 97 03/21/19 14:26 Room Air I&O- Last 24 Hours up to 6 AM 03/25/19 06:00 Intake Total 2400 ml Output Total 2700 ml Balance -300 ml Laboratory Data Microbiology Microbiology 03/21/19 Urine Culture - Final, Complete SIVAKUMAR ZIMMERMAN MD Mar 25, 2019 10:50
[2019-03-25 11:30] LABS: ALBUMIN 2.9 GM/DL (3.2-5.2); ALT/SGPT 43 U/L (12-78); BILIRUBIN,TOTAL 1.5 MG/DL (0.2-1.0); BLOOD UREA NITROGEN 3 MG/DL (7-18); CALCIUM LEVEL 7.9 MG/DL (8.5-10.1); CARBON DIOXIDE LEVEL 27 MEQ/L (21-32); CHLORIDE LEVEL 104 MEQ/L (98-107); CREATININE FOR GFR 0.37 MG/DL (0.55-1.30); GLOMERULAR FILTRATION RATE > 60.0 (>58); GLUCOSE, FASTING 104 MG/DL (70-100); LIPASE 2363 U/L (73-393); MAGNESIUM LEVEL 1.9 MG/DL (1.8-2.4); SODIUM LEVEL 137 MEQ/L (136-145)
[2019-03-25] MEDS ORDERED: KCL 10MEQ/100ML SWI (KRUN) 10 MEQ in APPROPRIATE DILUENT 1 EA IV ONE (13:00)
--- NOTE | 2019-03-25 15:02 | CCN ---
DATE: 03/25/2019 The patient was seen and examined this morning during bedside rounds. Overnight the patient had episodes of agitation with her delirium. She continued to have hallucinations. The patient was unable to swallow the oral Librium and was started on Versed as needed in addition to her Ativan as needed for her withdrawal symptoms. This morning the patient appears to be more calm and is more responsive appropriately. Her clinical institute withdrawal assessment for alcohol (CIWA) score has improved and is currently 7. She does still have some confabulation but is denying any auditory or visual hallucinations currently. She denies any chest pains. No shortness of breath. No coughing. She has some slight abdominal pain currently but no nausea or vomiting. No headaches. No light sensitivity. PHYSICAL EXAMINATION: Temperature 97.6, pulse 76, respirations 16, blood pressure 97/62, oxygen 97% on room air. In 1.8, out 2.3 liters. General: The patient is lying in bed. Agitation appears improved. She is resting comfortably, is oriented to person and not to place or time. HEENT: Normocephalic, atraumatic. Pupils are equal, reactive to light bilaterally. Mucous membranes are dry. She is not diaphoretic. Neck is supple. Trachea is midline. There is no palpable adenopathy. Cardiovascular: Regular rate and rhythm. Normal S1, S2. Unable to appreciate murmurs. Pulmonary: The patient is clear to auscultation bilaterally. No rales, wheezing, or rhonchi noted. Abdomen is soft, mildly tender to palpation, nondistended. Lower extremities: There is no lower extremity edema noted bilaterally, evidence of old ecchymosis noted. LABS: No labs for today. MICROBIOLOGY: Urine culture is no growth to date. ASSESSMENT AND PLAN: The patient is a 39-year-old female with history of alcohol abuse, hyperlipidemia, and depression who presented initially with acute abdominal pain. The patient was found to have acute pancreatitis with elevated lipase and CT imaging suggested of acute pancreatitis. The patient likely with alcoholic pancreatitis given her history of active alcohol abuse with a positive alcohol level on admission. The patient was then noted to be going into worsening alcohol withdrawal despite being on CIWA protocol and benzodiazepines. She became increasingly agitated and delirious complaining of visual and auditory hallucinations and was admitted to the intensive care unit (ICU) for her severe alcohol withdrawal and likely delirium tremens. - The patient's CIWA score is improved currently. She was unable to take the Librium oral, so was started on Versed as needed and Ativan IV as needed. - Continue to monitor CIWA score every 4 hours and continue to give Versed 2 mg IV every 2 hours as needed and Ativan as needed for increased agitation. - Once the patient is able to tolerate oral will switch her back to the Librium or Serax protocol. - Continue with morphine as needed for pain control for her acute pancreatitis. Her pain currently seems to be under control and she has no evidence of nausea or vomiting. - Continue her with nothing by mouth for now. - Continue maintenance fluids with D5-1/2 normal saline (NS) at 100 mL/h. - Continue to monitor her renal function and electrolytes and replete as needed. - Continue with thiamine, folate and multivitamin supplementation. - Continue with seizure precautions and monitoring her respiratory status. The patient currently appears to be protecting her airway and is not requiring any nasal cannula oxygen supplementation. - Mild thrombocytopenia likely in the setting of her chronic alcohol use. Will continue to monitor. Deep venous thrombosis (DVT) prophylaxis: Lovenox. Gastrointestinal (GI) prophylaxis: Proton pump inhibitor (PPI). FULL CODE. Total critical care time spent not including any procedures approximately 35 minutes.
[2019-03-25] MEDS: POTASSIUM CHLORIDE 10 MEQ SR TABLET PO SCH ×2 (20:40→23:07)
[2019-03-26] VITALS (13 sets, daily range): BP systolic 104–123; BP diastolic 50–58
[2019-03-26 04:29] LABS: BASO # 0.1 10^3/uL (0.0-0.2); EOS # 0.2 10^3/uL (0.0-0.50); EOS % 2.6 % (0.0-3.0); HEMATOCRIT 38.1 % (36.0-47.0); LYMPH # 1.2 10^3/uL (1.5-4.5); LYMPH % 19.9 % (24.0-44.0); MEAN CORPUSCULAR HEMOGLOBIN 34.1 pg (27.0-33.0); MEAN CORPUSCULAR HGB CONC 34.1 g/dl (32.0-36.5); MONO # 1.2 10^3/uL (0.0-0.8); MONO % 21.1 % (0.0-5.0); NEUTROPHILS # 3.2 10^3/uL (1.8-7.7); NEUTROPHILS % 55.2 % (36.0-66.0); PLATELET COUNT, AUTOMATED 148 10^3/uL (150-450); RED BLOOD COUNT 3.81 10^6/uL (4.00-5.40); WHITE BLOOD COUNT 5.8 10^3/uL (4.0-10.0)
[2019-03-26 04:56] LABS: ALBUMIN 2.7 GM/DL (3.2-5.2); ALT/SGPT 38 U/L (12-78); BILIRUBIN,TOTAL 1.3 MG/DL (0.2-1.0); BLOOD UREA NITROGEN 3 MG/DL (7-18); CALCIUM LEVEL 8.6 MG/DL (8.5-10.1); CARBON DIOXIDE LEVEL 26 MEQ/L (21-32); CHLORIDE LEVEL 107 MEQ/L (98-107); CREATININE FOR GFR 0.45 MG/DL (0.55-1.30); GLOMERULAR FILTRATION RATE > 60.0 (>58); GLUCOSE, FASTING 100 MG/DL (70-100); LIPASE 1840 U/L (73-393); POTASSIUM SERUM 3.9 MEQ/L (3.5-5.1); SODIUM LEVEL 137 MEQ/L (136-145); TOTAL PROTEIN 6.5 GM/DL (6.4-8.2)
[2019-03-26] MEDS: D5W/0.45% SODIUM CHLORIDE 1,000 ML IV SCH (04:56)
[2019-03-26] MEDS: chlordiazePOXIDE 25 MG CAP PO SCH ×4 (04:57→23:35)
[2019-03-26] MEDS: ENOXAPARIN 40 MG/0.4 ML SYRINGE (J1650) SC SCH (08:45)
[2019-03-26] MEDS: FOLIC ACID 1 MG TAB PO SCH (08:45)
[2019-03-26] MEDS: DOCUSATE SODIUM 100 MG CAP PO SCH ×2 (08:45→20:13)
[2019-03-26] MEDS: MULTIVITAMINS/MINERALS THERAP 1 TAB PO SCH (08:45)
[2019-03-26] MEDS: PANTOPRAZOLE 40MG INJ (PROTONIX) (C9113) IV SCH (08:46)
--- NOTE | 2019-03-26 10:37 | IPNPDOC ---
Subjective Date Seen The patient was seen on 03/26/19. Subjective Chief Complaint/HPI Patient is awake, alert, oriented 3. No more confused or lethargic, at present time. Offers no new complaints General: Denies: ROS Unobtainable, Chills, Night Sweats, Fatigue, Malaise, Normal Appetite, Other Symptoms Constitutional: Denies: Chills, Fever, Malaise, Night Sweats, Weakness, Fatigue, Weight Loss, Lethargy, Other Eyes: Denies: Pain, Vision change, Conjunctivae inflammation, Eyelid inflammation, Redness, Other ENT: Denies: Head Aches, Ear Pain, Dysphagia, Sinus Congestion, Post Nasal Drip, Sore Throat, Epistaxis, Other Symptoms Skin: Denies: Rash, Lesions, Jaundice, Bruising, Itching, Dry, Breakdown, Nail Changes, Other Pulmonary: Denies: Dyspnea, Cough, Pleuritic Chest Pain, Other Symptoms Cardiovascular: Denies: Chest Pain, Palpitations, Orthopnea, Paroxysmal Noc. Dy spnea, Edema, Lt Headedness, Other Symptoms Gastrointestinal: Denies: Nausea, Vomiting, Abdominal Pain, Diarrhea, Constipation, Melena, Hematochezia, Other Symptoms Genitourinary: Denies: Dysuria, Frequency, Incontinence, Hematuria, Retention, Other Symptoms Neurological: Denies: Weakness, Numbness, Incoordination, Change in speech, Confusion, Seizures, Other Symptoms Psych: Denies: Mood Normal, Anxiety, Depression, Memory Issues, Thoughts of Self Harm, Anger, Thoughts of Harming Other, Other Psych Objective Physical Examination General Exam: Positive: Alert, Cooperative Eye Exam: Positive: PERRLA, Conjunctiva & lids normal ENT Exam: Positive: Atraumatic, Mucous membr. moist/pink Neck Exam: Positive: Supple Chest Exam: Positive: Clear to auscultation Heart Exam: Positive: Rate Normal, Normal S1, Normal S2 Abdomen Exam: Positive: Soft Skin Exam: Positive: Nl turgor and temperature Neuro Exam: Positive: Normal Speech, Strength at 5/5 X4 ext, Normal Tone Psych Exam: Positive: Mental status NL, Mood NL, Oriented x 3 Assessment /Plan Problems (1) Pancreatitis, alcoholic, acute Status: Acute Problem Text: Pancreatitis, resolving progressively decreasing lipase level, it's 184o Discontinue IV fluids Clear liquid diet, advance as tolerated May transferred to medical floor DC tip inserter Morphine was ordered for pain management (2) Hypokalemia Status: Resolved Problem Text: Resolved (3) Hypomagnesemia Status: Acute Problem Text: Resolved (4) DTs (delirium tremens) Status: Resolved Problem Text: . Delirium tremors have resolved now Continue Librium 25 mg when necessary and Ativan 2 mg when necessary Patient probably may need outpatient alcohol rehabilitation Will get social work involved for further recommendations Possible discharge in a.m. Plan/VTE VTE Prophylaxis Ordered?: Yes VS, I&O, 24H, Fishbone Vital Signs/I&O Vital Signs Date Time Temp Pulse Resp B/P (MAP) Pulse Ox O2 Delivery O2 Flow Rate FiO2 03/26/19 08:00 98.2 68 17 123/57 (79) 98 03/21/19 14:26 Room Air I&O- Last 24 Hours up to 6 AM 03/26/19 06:00 Intake Total 2230 ml Output Total 1745 ml Balance 485 ml Laboratory Data 24H LABS Laboratory Tests 2 03/25/19 10:45: Anion Gap 6L, Glomerular Filtration Rate > 60.0, Blood Urea Nitrogen 3L, Creatinine 0.37L, Sodium Level 137, Potassium Level 3.0L, Chloride Level 104, Carbon Dioxide Level 27, Calcium Level 7.9L, Aspartate Amino Transf (AST/SGOT) 49H, Alanine Aminotransferase (ALT/SGPT) 43, Alkaline Phosphatase 82, Total Bilirubin 1.5H, Total Protein 6.0L, Albumin 2.9L, Magnesium Level 1.9, Albumin/Globulin Ratio 0.94L, Lipase 2363H 03/26/19 04:19: Anion Gap 4L, Glomerular Filtration Rate > 60.0, Blood Urea Nitrogen 3L, Creatinine 0.45L, Sodium Level 137, Potassium Level 3.9#, Chloride Level 107, Carbon Dioxide Level 26, Calcium Level 8.6, Aspartate Amino Transf (AST/SGOT) 40H, Alanine Aminotransferase (ALT/SGPT) 38, Alkaline Phosphatase 78, Total Bilirubin 1.3H, Total Protein 6.5, Albumin 2.7L, Albumin/Globulin Ratio 0.71L, Lipase 1840H, Immature Granulocyte % (Auto) 0.2, White Blood Count 5.8, Red Blood Count 3.81L, Hemoglobin 13.0, Hematocrit 38.1, Mean Corpuscular Volume 100 .0H, Mean Corpuscular Hemoglobin 34.1H, Mean Corpuscular Hemoglobin Concent 34.1, Red Cell Distribution Width 12.2, Platelet Count 148L, Neutrophils (%) (Auto) 55.2, Lymphocytes (%) (Auto) 19.9L, Monocytes (%) (Auto) 21.1H, Eosinophils (%) (Auto) 2.6, Basophils (%) (Auto) 1.0, Neutrophils # (Auto) 3.2, Lymphocytes # (Auto) 1.2L, Monocytes # (Auto) 1.2H, Eosinophils # (Auto) 0.2, Basophils # (Auto) 0.1, Nucleated Red Blood Cells % (auto) 0.0 CBC/BMP Laboratory Tests 03/25/19 10:45 Calcium Level 7.9 L, Aspartate Amino Transf (AST/SGOT) 49 H, Alanine Aminotransferase (ALT/SGPT) 43, Alkaline Phosphatase 82, Total Bilirubin 1.5 H, Total Protein 6.0 L, Albumin 2.9 L 03/26/19 04:19 Calcium Level 8.6, Aspartate Amino Transf (AST/SGOT) 40 H, Alanine Estrada otransferase (ALT/SGPT) 38, Alkaline Phosphatase 78, Total Bilirubin 1.3 H, Total Protein 6.5, Albumin 2.7 L, Red Blood Count 3.81 L, Mean Corpuscular Volume 100.0 H, Mean Corpuscular Hemoglobin 34.1 H, Mean Corpuscular Hemoglobin Concent 34.1, Red Cell Distribution Width 12.2, Neutrophils (%) (Auto) 55.2, Lymphocytes (%) (Auto) 19.9 L, Monocytes (%) (Auto) 21.1 H, Eosinophils (%) (Auto) 2.6, Basophils (%) (Auto) 1.0, Neutrophils # (Auto) 3.2, Lymphocytes # (Auto) 1.2 L, Monocytes # (Auto) 1.2 H, Eosinophils # (Auto) 0.2, Basophils # (Auto) 0.1 Microbiology Microbiology 03/21/19 Urine Culture - Final, Complete SIVAKUMAR ZIMMERMAN MD Mar 26, 2019 10:37
--- NOTE | 2019-03-26 12:22 | CCN ---
DATE: 03/26/2019 CRITICAL CARE PROGRESS NOTE: The patient was seen and examined this morning during bedside rounds. The patient's mental status improved yesterday evening. She was now alert and oriented times three and was not having any further episodes of hallucinations. The patient was able to take her evening Librium and did not require frequent doses of her as needed Ativan or Versed as previously needed. She was able to be taken off of one-to-one as well. This morning, the patient appears to be calm and is oriented and answering questions appropriately. She denies any auditory or visual or tactile hallucinations. She has no chest pains or shortness breath. No coughing. She does have some slight abdominal discomfort but no nausea or vomiting. She was given clear liquids yesterday evening, which she was able to tolerate well. PHYSICAL EXAMINATION: Temperature 98, pulse 67, respirations 18, blood pressure 112/57, oxygen saturation 97% on room air. Ins 2.1 liters, out 1.6 liters. General: The patient is lying in bed, is calm and oriented. HEENT: Normocephalic, atraumatic. Pupils are equal, reactive to light bilaterally. Mucous membranes are moist. She is not diaphoretic. Neck is supple. Trachea is midline and there is no palpable adenopathy. Cardiovascular: Regular rate and rhythm. Normal S1, S2. Unable appreciate murmurs. Pulmonary: The patient has some slight crackles at the base of the lung but has no wheezing or rhonchi. Abdomen is soft, has some mild tenderness to palpation, is nondistended. Extremities: There is no lower extremity edema noted bilaterally. She does not have any tremors with holding her hand out and very, very minimal tremors with touch. LABORATORY DATA: WBC 5.8, hemoglobin 13.0, platelets 148. Chemistry: Sodium is 137, potassium 3.9, chloride 107, bicarbonate 26, BUN 3, creatinine 0.45, glucose is 100, AST/ALT 40 and 38, lipase trending down to 1840, total bilirubin trending down to 1.3. ASSESSMENT/PLAN: Ms. Snyder is a 39-year-old female with a history of alcohol abuse, hyperlipidemia, and depression who presented initially with abdominal pain and acute pancreatitis with elevated lipase and CT imaging consistent with the findings of acute pancreatitis. Patient likely with alcoholic pancreatitis given her history of active alcohol abuse as well as with a positive alcohol level on admission. The patient however, then started having worsening symptoms of alcohol withdrawal despite being on clinical institute withdrawal assessment for alcohol (CIWA) protocol. She was increasingly agitated and delirious complaining of visual and auditory hallucinations and was admitted to the intensive care unit (ICU) for severe alcohol withdrawal and likely delirium tremens. - The patient's alcohol withdrawal symptoms have improved. She is not having any further hallucinations and her agitation has also significantly improved. The patient is now able to tolerate oral, so will change her back to the Librium protocol and discontinue the IV Versed. Can continue with Ativan IV as needed. - Continue monitoring her CIWA score and continue to taper her Librium as per the CIWA protocol and for her alcohol withdrawal. - Continue with morphine as needed for acute pancreatitis, although this is improving. - continue with fluid diet and will advance her diet as tolerated. - Can discontinue her maintenance fluids. - Continue to monitor her renal function, electrolytes and replete as needed. - Continue with thiamine, folate, and multivitamin supplementation. - Would encourage the patient to get out of bed to chair and to encourage deep breathing and an incentive spirometer. Deep venous thrombosis (DVT) prophylaxis with Lovenox. Gastrointestinal (GI) prophylaxis with proton pump inhibitor (PPI). FULL CODE. Total critical care time spent not including any procedures approximately 35 minutes. Please do not hesitate to call if any further questions or concerns. MTDD
[2019-03-26] MEDS ORDERED: FLUCONAZOLE 50MG TABLET PO ONE (22:45)
[2019-03-27] MEDS: chlordiazePOXIDE 25 MG CAP PO SCH ×2 (05:34→11:27)
[2019-03-27 06:00] VITALS: BP 127/61
[2019-03-27] MEDS: PANTOPRAZOLE 40MG INJ (PROTONIX) (C9113) IV SCH (08:47)
[2019-03-27] MEDS: ENOXAPARIN 40 MG/0.4 ML SYRINGE (J1650) SC SCH (08:47)
[2019-03-27] MEDS: MULTIVITAMINS/MINERALS THERAP 1 TAB PO SCH (08:48)
[2019-03-27] MEDS: DOCUSATE SODIUM 100 MG CAP PO SCH (08:48)
[2019-03-27] MEDS: FOLIC ACID 1 MG TAB PO SCH (08:48)
[2019-03-27] MEDS ORDERED: THIA100T7 PO (10:22)
[2019-03-27] MEDS ORDERED: VITMTA PO (10:22)
[2019-03-27] MEDS ORDERED: FOLI1TAB11 PO (10:22)
--- NOTE | 2019-03-27 10:29 | DS.PDOC ---
Discharge Summary General Date of Admission Mar 22, 2019 at 11:08 Date of Discharge 03/27/2019 Attending Physician: Spring Discharge Summary PROCEDURES PERFORMED DURING STAY: None. ADMITTING DIAGNOSES: 1. Acute pancreatitis. Lactic acidosis. DISCHARGE DIAGNOSES: 1. Delirium tremens, acute pancreatitis, lactic acidosis, alcohol dependence. COMPLICATIONS/CHIEF COMPLAINT: Pancreatitis,Alcoholic,Acute. HISTORY OF PRESENT ILLNESS: 39 years old white female with past medical history of no significant disease except alcohol abuse was seen at [facility] last night with abdominal pain and was discharged home after treatment, came back again with complaining of increasing abdominal pain with nausea. Patient was found to have very high lipase level and being admitted with the diagnoses of alcohol-induced acute pancreatitis. Note, patient had a history of seizures after abruptly stopping her alcohol in the past. HOSPITAL COURSE: Patient was initially admitted with the lactic acidosis and acute pancreatitis. Patient did receive multiple boluses of IV fluids, which normalized lactic acid and also did receive her PPIs for acute pancreatitis. Initially was patient Nothing by mouth and was started on Ativan tapering protocol. Her lipase level slowly and progressively came down, but on second day. Patient went to a of auditory, visual hallucination and tactile hallucination with the tremors. She became very agitated, confused. Patient was placed on one-to-one watch and transferred to ICU for close monitoring and she was started on Librium high-dose tapering protocol and was closely monitored in ICU. Patient also was also seen by Dr. Palacios in ICU for critical care consultation. Patient yesterday became awake, alert, oriented. No more in withdrawal symptoms and today she is clinically stable. There is no tenderness, tolerating oral feeding and she can be discharged home. Patient is provided with outpatient alcohol rehabilitation and extensive counseling was done regarding obtaining the information an appointment further rehabilitation protocol. . DISCHARGE MEDICATIONS: Please see below. ALLERGIES: Please see below. PHYSICAL EXAMINATION ON DISCHARGE: VITAL SIGNS: Please see below. GENERAL: Within normal limits HEENT: PERRLA NECK: Supple CARDIOVASCULAR EXAMINATION: S1, S2, regular RESPIRATORY EXAMINATION: Clear to A&P ABDOMINAL EXAMINATION: , Soft, nontender, bowel sounds present EXTREMITIES: No clubbing, cyanosis, edema SKIN: Normal NEUROLOGICAL EXAMINATION: . No focal motor sensory deficit PSYCHIATRIC EXAMINATION: Normal LABORATORY DATA: Please see below. IMAGING: CT abdomen and pelvis consistent with acute pancreatitis PROGNOSIS: Good ACTIVITY: As tolerated. DIET: As tolerated DISCHARGE PLAN: Follow-up with PCP in one week DISPOSITION: . Home DISCHARGE INSTRUCTIONS: 1. [As above. ITEMS TO FOLLOWUP ON ON OUTPATIENT: 1. Patient needs to make an appointment with outpatient alcohol, drug therapy. DISCHARGE CONDITION: Stable. TIME SPENT ON DISCHARGE: Greater than minutes. Vital Signs/I&Os Vital Signs Date Time Temp Pulse Resp B/P (MAP) Pulse Ox O2 Delivery O2 Flow Rate FiO2 03/27/19 06:00 97.1 64 17 127/61 (83) 98 03/21/19 14:26 Room Air I&O- Last 24 Hours up to 6 AM 03/27/19 06:00 Intake Total 590 ml Output Total 1250 ml Balance -660 ml Microbiology Microbiology 03/21/19 Urine Culture - Final, Complete Discharge Medications Scheduled Folic Acid (Folic Acid) 1 Mg Tablet, 1 MG PO DAILY Multivitamins (Thera M Plus Tablet) 1 Each Tablet, 1 TAB PO DAILY Thiamine HCl (Thiamine HCl) 100 Mg Tablet, 100 MG PO DAILY Allergies Coded Allergies: Sulfa (Sulfonamide Antibiotics) (Verified Allergy, Intermediate, cant remember, 03/21/19) SIVAKUMAR ZIMMERMAN MD Mar 27, 2019 10:29
== END 2019-03-27 11:47 | disposition home or self-care (01) | DRG 282 ==
LOC: M ED 09:35 → M ED INP 12:35 → M MSPAV 14:31 → OBSVTOIN 03-22 11:08 → M PCU 03-23 17:08 → M ICU 03-24 09:45 → M MSPAV 03-26 14:11
PROVIDERS: ADMIT Internal Medicine; ATTEND Internal Medicine
DX: K85.20 Alcohol induced acute pancreatitis without necrosis or infection (principal); F10.231 Alcohol dependence with withdrawal delirium; E87.2 Acidosis; E83.42 Hypomagnesemia; E87.6 Hypokalemia; Z88.2 Allergy status to sulfonamides

== ENCOUNTER → 2019-04-04 | Outpatient (REF) | payer BC ==
[~2019-04-04] MED LIST changes: +FOLI1TAB11 PO; +NITR100C2; +THIA100T7 PO; +VITMTA PO
[2019-04-04 19:20] LABS: ALBUMIN 3.4 GM/DL (3.2-5.2); ALT/SGPT 44 U/L (12-78); BASO # 0.2 10^3/uL (0.0-0.2); BASO % 2.1 % (0.0-1.0); BILIRUBIN,DIRECT 0.2 MG/DL (0.0-0.2); BILIRUBIN,TOTAL 0.4 MG/DL (0.2-1.0); BLOOD UREA NITROGEN 10 MG/DL (7-18); CALCIUM LEVEL 9.2 MG/DL (8.5-10.1); CARBON DIOXIDE LEVEL 30 MEQ/L (21-32); CHLORIDE LEVEL 102 MEQ/L (98-107); CREATININE FOR GFR 0.59 MG/DL (0.55-1.30); EOS # 0.1 10^3/uL (0.0-0.50); EOS % 1.7 % (0.0-3.0); GLOMERULAR FILTRATION RATE > 60.0 (>58); GLUCOSE, FASTING 69 MG/DL (70-100); HEMATOCRIT 42.5 % (36.0-47.0); HEMOGLOBIN 13.8 g/dl (12.0-15.5); LIPASE 594 U/L (73-393); LYMPH # 1.7 10^3/uL (1.5-4.5); MEAN CORPUSCULAR HEMOGLOBIN 33.9 pg (27.0-33.0); MEAN CORPUSCULAR HGB CONC 32.5 g/dl (32.0-36.5); MEAN CORPUSCULAR VOLUME 104.4 fl (80.0-96.0); MONO # 1.1 10^3/uL (0.0-0.8); MONO % 12.9 % (0.0-5.0); NEUTROPHILS # 4.9 10^3/uL (1.8-7.7); NEUTROPHILS % 60.7 % (36.0-66.0); PLATELET COUNT, AUTOMATED 564 10^3/uL (150-450); POTASSIUM SERUM 4.3 MEQ/L (3.5-5.1); RED BLOOD COUNT 4.07 10^6/uL (4.00-5.40); SODIUM LEVEL 139 MEQ/L (136-145); TOTAL PROTEIN 6.8 GM/DL (6.4-8.2); WHITE BLOOD COUNT 8.1 10^3/uL (4.0-10.0)
[2019-04-04 19:28] LABS: FOLATE 16.6 NG/ML; VITAMIN B12 LEVEL 1801 PG/ML
== END ==
LOC: M SFHCCAPE 11:40
PROVIDERS: ATTEND Physician Assistant
DX: K85.20 Alcohol induced acute pancreatitis without necrosis or infection (principal); F10.231 Alcohol dependence with withdrawal delirium

== ENCOUNTER → 2019-05-02 | Outpatient (REF) | payer BC ==
[2019-05-02 17:42] LABS: ALBUMIN 3.6 GM/DL (3.2-5.2); ALT/SGPT 18 U/L (12-78); BILIRUBIN,TOTAL 0.5 MG/DL (0.2-1.0); BLOOD UREA NITROGEN 10 MG/DL (7-18); CALCIUM LEVEL 9.2 MG/DL (8.5-10.1); CARBON DIOXIDE LEVEL 30 MEQ/L (21-32); CHLORIDE LEVEL 106 MEQ/L (98-107); CHOLESTEROL LEVEL 304 MG/DL (<200); CHOLESTEROL RISK RATIO 4.108 (<5); CREATININE FOR GFR 0.64 MG/DL (0.55-1.30); GLOMERULAR FILTRATION RATE > 60.0 (>58); GLUCOSE, FASTING 81 MG/DL (70-100); HDL CHOLESTEROL 74 MG/DL (>40); LDL CHOLESTEROL 204 MG/DL (<100); LIPASE 270 U/L (73-393); NON-HDL-C 230 MG/DL; POTASSIUM SERUM 4.2 MEQ/L (3.5-5.1); SODIUM LEVEL 141 MEQ/L (136-145); TOTAL PROTEIN 6.8 GM/DL (6.4-8.2); TRIGLYCERIDES LEVEL 131 MG/DL (<150)
[2019-05-02 17:47] LABS: BASO # 0.1 10^3/uL (0.0-0.2); BASO % 0.9 % (0.0-1.0); EOS # 0.2 10^3/uL (0.0-0.50); EOS % 2.8 % (0.0-3.0); HEMATOCRIT 42.8 % (36.0-47.0); HEMOGLOBIN 14.1 g/dl (12.0-15.5); LYMPH # 1.7 10^3/uL (1.5-4.5); LYMPH % 31.9 % (24.0-44.0); MEAN CORPUSCULAR HEMOGLOBIN 34.2 pg (27.0-33.0); MEAN CORPUSCULAR HGB CONC 32.9 g/dl (32.0-36.5); MEAN CORPUSCULAR VOLUME 103.9 fl (80.0-96.0); MONO # 0.7 10^3/uL (0.0-0.8); NEUTROPHILS # 2.8 10^3/uL (1.8-7.7); NEUTROPHILS % 51.2 % (36.0-66.0); PLATELET COUNT, AUTOMATED 300 10^3/uL (150-450); RED BLOOD COUNT 4.12 10^6/uL (4.00-5.40); WHITE BLOOD COUNT 5.5 10^3/uL (4.0-10.0)
== END ==
LOC: M SFHCCAPE 10:13
PROVIDERS: ATTEND Physician Assistant
DX: K85.20 Alcohol induced acute pancreatitis without necrosis or infection (principal)

== ENCOUNTER → 2019-09-11 | Outpatient (REF) | payer BC ==
[2019-09-11 16:36] LABS: BASO % 0.6 % (0.0-1.0); EOS # 0.2 10^3/uL (0.0-0.5); EOS % 2.8 % (0.0-3.0); HEMATOCRIT 41.2 % (36.0-47.0); LYMPH # 1.5 10^3/uL (1.5-5.0); LYMPH % 27.9 % (24.0-44.0); MEAN CORPUSCULAR HEMOGLOBIN 29.5 pg (27.0-33.0); MEAN CORPUSCULAR HGB CONC 31.6 g/dl (32.0-36.5); MEAN CORPUSCULAR VOLUME 93.4 fl (80.0-96.0); MONO # 0.5 10^3/uL (0.0-0.8); MONO % 9.9 % (0.0-5.0); NEUTROPHILS # 3.2 10^3/uL (1.5-8.5); NEUTROPHILS % 58.4 % (36.0-66.0); PLATELET COUNT, AUTOMATED 270 10^3/uL (150-450); RED BLOOD COUNT 4.41 10^6/uL (4.00-5.40); WHITE BLOOD COUNT 5.5 10^3/uL (4.0-10.0)
[2019-09-11 16:53] LABS: ALBUMIN 3.6 GM/DL (3.2-5.2); ALT/SGPT 16 U/L (12-78); BILIRUBIN,TOTAL 0.4 MG/DL (0.2-1.0); BLOOD UREA NITROGEN 15 MG/DL (7-18); CALCIUM LEVEL 8.8 MG/DL (8.5-10.1); CARBON DIOXIDE LEVEL 30 MEQ/L (21-32); CHLORIDE LEVEL 105 MEQ/L (98-107); CHOLESTEROL LEVEL 196 MG/DL (<200); CHOLESTEROL RISK RATIO 2.613 (<5); CREATININE FOR GFR 0.68 MG/DL (0.55-1.30); GLOMERULAR FILTRATION RATE > 60.0 (>58); GLUCOSE, FASTING 86 MG/DL (70-100); HDL CHOLESTEROL 75 MG/DL (>40); LDL CHOLESTEROL 106 MG/DL (<100); NON-HDL-C 121 MG/DL; POTASSIUM SERUM 4.3 MEQ/L (3.5-5.1); SODIUM LEVEL 141 MEQ/L (136-145); TOTAL 25(OH) VITAMIN D 23.4 NG/ML (30.0-100.0); TOTAL PROTEIN 6.7 GM/DL (6.4-8.2); TRIGLYCERIDES LEVEL 74 MG/DL (<150)
== END ==
LOC: M SFHCCAPE 08:54
PROVIDERS: ATTEND Physician Assistant
DX: E78.00 Pure hypercholesterolemia, unspecified (principal); E55.9 Vitamin D deficiency, unspecified

== ENCOUNTER → 2020-11-27 | Outpatient (REF) | payer BC ==
[2020-11-27 13:43] LABS: BASO # 0.1 10^3/uL (0.0-0.2); BASO % 2.2 % (0.0-1.0); EOS % 1.2 % (0.0-3.0); HEMATOCRIT 46.3 % (36.0-47.0); HEMOGLOBIN 15.1 g/dl (12.0-15.5); LYMPH # 1.2 10^3/uL (1.5-5.0); LYMPH % 35.4 % (24.0-44.0); MEAN CORPUSCULAR HEMOGLOBIN 34.9 pg (27.0-33.0); MEAN CORPUSCULAR HGB CONC 32.6 g/dl (32.0-36.5); MEAN CORPUSCULAR VOLUME 106.9 fl (80.0-96.0); MONO # 0.6 10^3/uL (0.0-0.8); MONO % 18.5 % (2.0-8.0); NEUTROPHILS # 1.4 10^3/uL (1.5-8.5); NEUTROPHILS % 42.4 % (36.0-66.0); PLATELET COUNT, AUTOMATED 134 10^3/uL (150-450); RED BLOOD COUNT 4.33 10^6/uL (4.00-5.40); WHITE BLOOD COUNT 3.3 10^3/uL (4.0-10.0)
[2020-11-27 13:59] LABS: ALBUMIN 4.3 GM/DL (3.2-5.2); ALT/SGPT 88 U/L (12-78); BILIRUBIN,TOTAL 0.7 MG/DL (0.2-1.0); BLOOD UREA NITROGEN 8 MG/DL (7-18); CALCIUM LEVEL 9.1 MG/DL (8.5-10.1); CARBON DIOXIDE LEVEL 30 MEQ/L (21-32); CHLORIDE LEVEL 103 MEQ/L (98-107); CHOLESTEROL LEVEL 396 MG/DL (<200); CHOLESTEROL RISK RATIO 2.262 (<5); CREATININE FOR GFR 0.62 MG/DL (0.55-1.30); FREE T4 0.74 NG/DL (0.76-1.46); GLOMERULAR FILTRATION RATE > 60.0 (>58); GLUCOSE, FASTING 77 MG/DL (70-100); NON-HDL-C 221 MG/DL; POTASSIUM SERUM 4.6 MEQ/L (3.5-5.1); SODIUM LEVEL 141 MEQ/L (136-145); TOTAL 25(OH) VITAMIN D 17.1 NG/ML (30.0-100.0); TOTAL PROTEIN 7.8 GM/DL (6.4-8.2); TRIGLYCERIDES LEVEL 122 MG/DL (<150); VITAMIN B12 LEVEL 1144 PG/ML
[2020-11-27 14:02] LABS: FOLATE 7.1 NG/ML
[2020-11-27 16:10] LABS: HDL CHOLESTEROL 175 MG/DL (>40); LDL CHOLESTEROL 196.6 MG/DL (<100)
[2020-11-27 16:35] LABS: APPEARANCE, URINE CLOUDY (CLEAR); BACTERIA, URINE AUTO 1+ (NEGATIVE); BILIRUBIN, URINE AUTO NEGATIVE (NEGATIVE); BLOOD, URINE BLOOD 1+ (NEGATIVE); COLOR, URINE AMBER (YELLOW); GLUCOSE, URINE (UA) AUTO NEGATIVE (NEGATIVE); KETONE, URINE AUTO TRACE mg/dL (NEGATIVE); LEUKOCYTE ESTERASE, URINE AUTO TRACE (NEGATIVE); MUCUS, URINE SMALL (NEGATIVE); NITRITE, URINE AUTO POSITIVE (NEGATIVE); PROTEIN, URINE AUTO 2+ mg/dL (NEGATIVE); RBC, URINE AUTO 3 /HPF (0-3); SPECIFIC GRAVITY URINE AUTO 1.023 (1.002-1.035); SQUAMOUS EPITHELIAL CELL UR AU 11 /HPF (0-6); WBC, URINE AUTO 5 /HPF (0-3)
== END ==
LOC: M SFHCADAM 10:04
PROVIDERS: ATTEND Physician Assistant
DX: F10.10 Alcohol abuse, uncomplicated (principal); F33.0 Major depressive disorder, recurrent, mild; E78.00 Pure hypercholesterolemia, unspecified; E55.9 Vitamin D deficiency, unspecified; N30.00 Acute cystitis without hematuria

== ENCOUNTER → 2021-05-19 | Outpatient (CLI) | payer BC | LOC: M OUTALCOH 07:30 | PROVIDERS: ATTEND Psychiatry & Neurology Psychiatry | DX: Z13.9 Encounter for screening, unspecified (principal) ==

== ENCOUNTER 2021-05-26 15:39 | Outpatient (RCR) | payer BC | END 2021-05-27 | LOC: M OUTALCOH 15:39 | PROVIDERS: ATTEND Psychiatry & Neurology Psychiatry | DX: F10.20 Alcohol dependence, uncomplicated (principal); Z72.0 Tobacco use ==

== ENCOUNTER → 2021-06-26 | Outpatient (RCR) | payer BC | LOC: M OUTALCOH 06-03 10:51 | PROVIDERS: ATTEND Psychiatry & Neurology Psychiatry | DX: F10.20 Alcohol dependence, uncomplicated (principal); Z72.0 Tobacco use ==

== ENCOUNTER 2021-07-23 12:00 | Outpatient (RCR) | payer BC | END 2021-07-27 | LOC: M OUTALCOH 12:00 | PROVIDERS: ATTEND Psychiatry & Neurology Psychiatry | DX: F10.20 Alcohol dependence, uncomplicated (principal); Z72.0 Tobacco use ==

== ENCOUNTER 2021-08-25 16:00 | Outpatient (RCR) | payer BC | END 2021-08-26 | LOC: M OUTALCOH 16:00 | PROVIDERS: ATTEND Psychiatry & Neurology Psychiatry | DX: F10.20 Alcohol dependence, uncomplicated (principal); Z72.0 Tobacco use ==

== ENCOUNTER 2021-09-08 13:46 | Outpatient (RCR) | payer BC | END 2021-09-26 | LOC: M OUTALCOH 13:46 | PROVIDERS: ATTEND Psychiatry & Neurology Psychiatry | DX: F10.20 Alcohol dependence, uncomplicated (principal); Z72.0 Tobacco use ==

== ENCOUNTER → 2022-01-13 | Outpatient (REF) | payer BC ==
[2022-01-13 16:01] LABS: BASO % 0.7 % (0.0-1.0); EOS # 0.2 10^3/uL (0.0-0.5); EOS % 2.8 % (0.0-3.0); HEMATOCRIT 42.8 % (36.0-47.0); LYMPH # 2.1 10^3/uL (1.5-5.0); LYMPH % 36.7 % (24.0-44.0); MEAN CORPUSCULAR HGB CONC 32.7 g/dl (32.0-36.5); MEAN CORPUSCULAR VOLUME 88.6 fl (80.0-96.0); MONO # 0.6 10^3/uL (0.0-0.8); MONO % 9.6 % (2.0-8.0); NEUTROPHILS # 2.9 10^3/uL (1.5-8.5); NEUTROPHILS % 49.9 % (36.0-66.0); PLATELET COUNT, AUTOMATED 252 10^3/uL (150-450); RED BLOOD COUNT 4.83 10^6/uL (4.00-5.40); WHITE BLOOD COUNT 5.8 10^3/uL (4.0-10.0)
[2022-01-13 16:26] LABS: ALT/SGPT 15 U/L (12-78); BILIRUBIN,TOTAL 0.4 MG/DL (0.2-1.0); BLOOD UREA NITROGEN 8 MG/DL (7-18); CALCIUM LEVEL 9.4 MG/DL (8.5-10.1); CARBON DIOXIDE LEVEL 28 MEQ/L (21-32); CHLORIDE LEVEL 105 MEQ/L (98-107); CHOLESTEROL LEVEL 276 MG/DL (<200); CREATININE FOR GFR 0.78 MG/DL (0.55-1.30); FREE T4 0.83 NG/DL (0.76-1.46); GLOMERULAR FILTRATION RATE > 60.0 (>58); GLUCOSE, FASTING 87 MG/DL (70-100); HDL CHOLESTEROL 60 MG/DL (>40); LDL CHOLESTEROL 189 MG/DL (<100); NON-HDL-C 216 MG/DL; POTASSIUM SERUM 4.2 MEQ/L (3.5-5.1); SODIUM LEVEL 140 MEQ/L (136-145); TOTAL PROTEIN 7.1 GM/DL (6.4-8.2); TRIGLYCERIDES LEVEL 134 MG/DL (<150)
[2022-01-13 16:32] LABS: TOTAL 25(OH) VITAMIN D 20.8 NG/ML (30.0-100.0)
== END ==
LOC: M SFHCCAPE 09:44
PROVIDERS: ATTEND Physician Assistant
DX: E78.00 Pure hypercholesterolemia, unspecified (principal); D72.819 Decreased white blood cell count, unspecified; R79.89 Other specified abnormal findings of blood chemistry; F33.0 Major depressive disorder, recurrent, mild; E55.9 Vitamin D deficiency, unspecified; K70.0 Alcoholic fatty liver; F10.11 Alcohol abuse, in remission; R00.2 Palpitations

== ENCOUNTER → 2022-01-21 | Outpatient (CLI) | payer BC | LOC: M EKG 09:32 → M CARPUL 09:32 | PROVIDERS: ATTEND Physician Assistant | DX: R00.2 Palpitations (principal); R94.31 Abnormal electrocardiogram [ECG] [EKG] ==

== ENCOUNTER → 2022-01-28 | Outpatient (CLI) | payer BC | LOC: M EKG 10:09 | PROVIDERS: ATTEND Physician Assistant | DX: R00.2 Palpitations (principal) ==

== ENCOUNTER → 2022-08-19 | Outpatient (REF) | payer BC ==
[2022-08-19 17:07] LABS: BASO # 0.1 10^3/uL (0.0-0.2); BASO % 0.9 % (0.0-1.0); EOS # 0.5 10^3/uL (0.0-0.5); EOS % 9.1 % (0.0-3.0); HEMOGLOBIN 12.3 g/dl (12.0-15.5); LYMPH % 34.9 % (24.0-44.0); MEAN CORPUSCULAR HEMOGLOBIN 29.7 pg (27.0-33.0); MEAN CORPUSCULAR HGB CONC 31.5 g/dl (32.0-36.5); MEAN CORPUSCULAR VOLUME 94.2 fl (80.0-96.0); MONO # 0.5 10^3/uL (0.0-0.8); MONO % 9.7 % (2.0-8.0); NEUTROPHILS # 2.5 10^3/uL (1.5-8.5); PLATELET COUNT, AUTOMATED 263 10^3/uL (150-450); RED BLOOD COUNT 4.14 10^6/uL (4.00-5.40); WHITE BLOOD COUNT 5.6 10^3/uL (4.0-10.0)
[2022-08-19 18:04] LABS: ALBUMIN 3.8 G/DL (3.2-5.2); ALT/SGPT 10 U/L (7.0-40); BILIRUBIN,TOTAL 0.3 MG/DL (0.3-1.2); BLOOD UREA NITROGEN 11 MG/DL (9-23); CALCIUM LEVEL 8.6 MG/DL (8.5-10.1); CARBON DIOXIDE LEVEL 29 MMOL/L (20-31); CHLORIDE LEVEL 102 MMOL/L (98-107); CHOLESTEROL LEVEL 221 MG/DL (<200); CHOLESTEROL RISK RATIO 4.09 (<5); CREATININE FOR GFR 0.74 MG/DL (0.55-1.30); FREE T4 0.77 NG/DL (0.89-1.76); GLOMERULAR FILTRATION RATE > 60.0 (>58); GLUCOSE, FASTING 89 MG/DL (60-100); HCG, SERUM QUANTITATIVE 38.8 MIU/ML (<4.2); NON-HDL-C 167 MG/DL; POTASSIUM SERUM 4.2 MMOL/L (3.5-5.1); SODIUM LEVEL 138 MMOL/L (136-145); TOTAL PROTEIN 6.1 G/DL (5.7-8.2); TRIGLYCERIDES LEVEL 150 MG/DL (<150)
== END ==
LOC: M SFHCCAPE 08:42
PROVIDERS: ATTEND Physician Assistant
DX: E78.00 Pure hypercholesterolemia, unspecified (principal); F33.0 Major depressive disorder, recurrent, mild; R79.89 Other specified abnormal findings of blood chemistry; E55.9 Vitamin D deficiency, unspecified; K70.0 Alcoholic fatty liver; F10.11 Alcohol abuse, in remission; N93.9 Abnormal uterine and vaginal bleeding, unspecified

== ENCOUNTER → 2023-03-05 | Outpatient (REF) | payer BC ==
[2023-03-05 17:36] LABS: HEMATOCRIT 39.1 % (36.0-47.0); HEMOGLOBIN 12.4 g/dl (12.0-15.5); MEAN CORPUSCULAR HGB CONC 31.7 g/dl (32.0-36.5); MEAN CORPUSCULAR VOLUME 91.4 fl (80.0-96.0); PLATELET COUNT, AUTOMATED 299 10^3/uL (150-450); RED BLOOD COUNT 4.28 10^6/uL (4.00-5.40); WHITE BLOOD COUNT 7.8 10^3/uL (4.0-10.0)
[2023-03-05 17:48] LABS: ALKALINE PHOSPHATASE 43 U/L (46-116); ALT/SGPT 10 U/L (7.0-40); AST/SGOT < 8 U/L (<34); BILIRUBIN,TOTAL 0.5 MG/DL (0.3-1.2); BLOOD UREA NITROGEN 12 MG/DL (9-23); CALCIUM LEVEL 9.4 MG/DL (8.5-10.1); CARBON DIOXIDE LEVEL 29 MMOL/L (20-31); CHLORIDE LEVEL 106 MMOL/L (98-107); CHOLESTEROL LEVEL 228 MG/DL (<200); CHOLESTEROL RISK RATIO 3.32 (<5); CREATININE FOR GFR 0.65 MG/DL (0.55-1.30); GLOMERULAR FILTRATION RATE > 60.0 (>58); GLUCOSE, FASTING 73 MG/DL (60-100); HDL CHOLESTEROL 68.6 MG/DL (>40); NON-HDL-C 159.4 MG/DL; POTASSIUM SERUM 4.5 MMOL/L (3.5-5.1); SODIUM LEVEL 140 MMOL/L (136-145); THYROID STIMULATING HORMONE 1.939 uIU/ML (0.55-4.78); TOTAL 25(OH) VITAMIN D 23.3 NG/ML (20.0-100.0); TOTAL PROTEIN 6.5 G/DL (5.7-8.2); TRIGLYCERIDES LEVEL 82 MG/DL (<150)
== END ==
LOC: M SFHCADAM 11:51
PROVIDERS: ATTEND Physician Assistant
DX: E55.9 Vitamin D deficiency, unspecified (principal); E78.00 Pure hypercholesterolemia, unspecified; F17.210 Nicotine dependence, cigarettes, uncomplicated

== ENCOUNTER → 2023-05-21 | Outpatient (REF) | payer BC | LOC: M SFHCADAM 16:37 | PROVIDERS: ATTEND Physician Assistant | DX: Z12.4 Encounter for screening for malignant neoplasm of cervix (principal); R87.615 Unsatisfactory cytologic smear of cervix; R87.618 Other abnormal cytological findings on specimens from cervix uteri | CPT/HCPCS: 87624; G0123 ==

== ENCOUNTER → 2023-10-26 | Outpatient (CLI) | payer BC | LOC: M ADAMS 14:31 | PROVIDERS: ATTEND Physician Assistant | DX: E78.00 Pure hypercholesterolemia, unspecified (principal); E03.9 Hypothyroidism, unspecified ==

== ENCOUNTER → 2024-07-13 | Outpatient (CLI) | payer BC | LOC: M WHC 19:24 | PROVIDERS: ATTEND Physician Assistant | DX: Z12.31 Encounter for screening mammogram for malignant neoplasm of breast (principal); Z53.9 Procedure and treatment not carried out, unspecified reason ==

== ENCOUNTER → 2024-08-03 | Outpatient (CLI) | payer BC | LOC: M PLARAD 08:44 | PROVIDERS: ATTEND Physician Assistant | DX: M41.9 Scoliosis, unspecified (principal); M54.6 Pain in thoracic spine; G89.29 Other chronic pain; M54.50 Low back pain, unspecified ==